=== PATIENT | female | born 1950 | race Two or more races ===

== ENCOUNTER 2020-06-22 16:05 | Emergency (ER) | payer MEDICARE, MEDICAID ==
[~2020-06-22] VITALS: Ht 154.9 cm; Wt 77.1 kg
--- NOTE | 2020-06-22 16:10 | NUR ---
Patient bibdaughter, sent by bird keeper due to BP management. On room air, breathing evenly and unlabored. connected to the monitor and pulse ox. kept comfortable, will continue to monitor accordingly.
--- NOTE | 2020-06-22 16:11 | NUR ---
blood drawned and IV access initiated and sent to lab.
[2020-06-22] MEDS ORDERED: hydrALAZINE HCL IV 20 MG VIAL ONE (16:27)
[2020-06-22] MEDS ORDERED: hydrALAZINE HCL IV 20 MG VIAL IV ONE (16:30)
[2020-06-22 16:44] LABS: BASOPHILS # (AUTO) 0.1 /CMM (0.0-0.2); BASOPHILS % (AUTO) 0.9 % (0.0-2.0); HEMATOCRIT 38 % (33-45); HEMOGLOBIN 12.1 g/dL (11.5-14.8); LYMPHOCYTES # (AUTO) 2.6 /CMM (0.8-4.8); LYMPHOCYTES % (AUTO) 24.4 % (20.0-44.0); MEAN CORPUSCULAR HGB CONC 32 g/dl (31.0-36.0); MEAN CORPUSCULAR VOLUME 86 fL (82-100); MONOCYTES # (AUTO) 1.1 /CMM (0.1-1.30); MONOCYTES % (AUTO) 10.8 % (2.0-12.0); NEUTROPHILS # (AUTO) 6.5 /CMM (1.8-8.9); NEUTROPHILS % (AUTO) 61.9 % (43.0-81.0); PLATELET COUNT (AUTO) 420 /CMM (150-450); RED BLOOD CELL COUNT(AUTO) 4.45 MIL/uL (4.0-5.2); WHITE BLOOD COUNT (AUTO) 10.5 K/uL (4.3-11.0)
[2020-06-22 16:45] LABS: CALCIUM, SERUM 9.6 mg/dL (8.5-10.1); CARBON DIOXIDE 27 mmol/L (21-32); CHLORIDE 102 mmol/L (98-107); CREATININE 0.6 mg/dL (0.6-1.3); GLUCOSE 98 mg/dL (74-106); POTASSIUM 4.1 mmol/L (3.5-5.1); SODIUM SERUM 137 mmol/L (136-145); UREA NITROGEN, BLOOD 20 mg/dL (7-18)
[2020-06-22 17:27] VITALS: BP 170/81
--- NOTE | 2020-06-22 17:30 | NUR ---
Patient discharged to home in stable condition. Written and verbal after care instructions given. Patient verbalizes understanding of instruction.IV removed. Catheter intact and site benign. Pressure and 4x4 applied to site. No bleeding noted.
== END 2020-06-22 17:29 | disposition home or self-care (01) ==
LOC: ER 16:09
DX: I10 Essential (primary) hypertension (principal); J90 Pleural effusion, not elsewhere classified; I48.91 Unspecified atrial fibrillation
CPT/HCPCS: 36415; 71045; 80048; 84484; 85025; 93005 ×2; 96374; 99285; J0360

== ENCOUNTER 2022-06-24 11:19 | Emergency (ER) | payer MEDICARE, OTHER ==
[~2022-06-24] VITALS: Ht 160 cm; Wt 65.3 kg
--- NOTE | 2022-06-24 11:40 | NUR ---
To ER bed 3, "CP/palpitation started 4am, check BP -high sbp 200 took meds around 5am +nausea", aaox3, breathing even and non labored, connected to monitor, awaiting md [email or web address]
--- NOTE | 2022-06-24 11:55 | NUR ---
SAL[facility] LOCK ESTABLISHED, BLOOD DRAWN AND SENT TO LAB
[2022-06-24] MEDS ORDERED: ASPIRIN 81 MG TAB.CHEW PO ONE (12:00)
[2022-06-24] MEDS ORDERED: CLONIDINE HCL 0.1 MG TABLET PO ONE (12:00)
[2022-06-24] MEDS ORDERED: CLONIDINE HCL 0.1 MG TABLET ONE (12:05)
[2022-06-24] MEDS ORDERED: ASPIRIN 81 MG TAB.CHEW ONE (12:06)
[2022-06-24 12:25] LABS: BASOPHILS # (AUTO) 0.1 K/uL (0.0-0.2); BASOPHILS % (AUTO) 0.6 % (0.0-2.0); EOSINOPHILS % (AUTO) 1.1 % (0.0-6.0); HEMATOCRIT 35 % (33-45); HEMOGLOBIN 11.5 g/dL (11.5-14.8); LYMPHOCYTES # (AUTO) 1.8 K/uL (0.8-4.8); LYMPHOCYTES % (AUTO) 17.1 % (20.0-44.0); MEAN CORPUSCULAR HGB CONC 33 g/dl (31.0-36.0); MEAN CORPUSCULAR VOLUME 84 fL (82-100); MONOCYTES # (AUTO) 0.8 K/uL (0.1-1.30); MONOCYTES % (AUTO) 7.9 % (2.0-12.0); NEUTROPHILS # (AUTO) 7.9 K/uL (1.8-8.9); NEUTROPHILS % (AUTO) 73.3 % (43.0-81.0); PLATELET COUNT (AUTO) 372 K/uL (150-450); RED BLOOD CELL COUNT(AUTO) 4.18 MIL/uL (4.0-5.2); WHITE BLOOD COUNT (AUTO) 10.8 K/uL (4.3-11.0)
[2022-06-24 12:39] LABS: CALCIUM, SERUM 8.9 mg/dL (8.5-10.1); CARBON DIOXIDE 26 mmol/L (21-32); CHLORIDE 102 mmol/L (98-107); CREATININE 0.7 mg/dL (0.6-1.3); GLUCOSE 125 mg/dL (74-106); POTASSIUM 3.9 mmol/L (3.5-5.1); SODIUM SERUM 136 mmol/L (136-145); UREA NITROGEN, BLOOD 21 mg/dL (7-18)
--- NOTE | 2022-06-24 13:27 | NUR ---
[facility] [phone]
[2022-06-24 15:00] VITALS: BP 159/75
--- NOTE | 2022-06-24 15:10 | NUR ---
IV removed. Catheter intact and site benign. Pressure and 4x4 applied to site. No bleeding noted.Patient discharged to home in stable condition. Written and verbal after care instructions given. Patient verbalizes understanding of instruction.
== END 2022-06-24 15:12 | disposition home or self-care (01) ==
LOC: ER 11:22
DX: I10 Essential (primary) hypertension (principal); R07.89 Other chest pain; J90 Pleural effusion, not elsewhere classified
CPT/HCPCS: 36415; 71045-TC; 80048-TC; 84484-TC; 85025-TC